=== PATIENT | female | born 1990 | race Caucasian/White ===

== ENCOUNTER 2021-01-16 12:04 | Emergency (ER) | payer BC, SELFPAY ==
[2021-01-16 12:17] VITALS: BP 102/49; PULSE 70; RESP 16; TEMP 36.4; O2SAT 100
--- NOTE | 2021-01-16 12:58 | ED.EYEPROB ---
HPI - Eye Problem General Chief complaint: Eye Problems Stated complaint: eye irritation Time Seen by Provider: 01/16/21 12:49 Source: patient and RN notes reviewed Mode of arrival: ambulatory Limitations: no limitations History of Present Illness HPI Narrative: Patient presents today complaining of irritation to her right eye as well as swelling to the right eyelid. She cleaned out her chicken coop a few days ago and the symptoms began later that day. She been cleaning the external portion of her eye with peroxide and applying Neosporin. She had been putting old leftover antibiotic drops in her eye without relief. States the symptoms are not worsening, but also not improving. Denies drainage, vision changes or difficulty seeing. Denies pain. Reports itching and irritation. MD chief complaint: eye redness Related Data Home Medications Medication Instructions Recorded Confirmed ergocalciferol (vitamin D2) 01/16/21 escitalopram oxalate mg 01/16/21 spironolactone 01/16/21 Allergies Allergy/AdvReac Type Severity Reaction Status Date / Time No Known Drug Allergies Allergy Unknown Unknown Verified 01/16/21 12:34 Review of Systems Review of Systems: Narrative: CONSTITUTIONAL: Denies body aches, fever, chills, or sweats. EYES: Denies visual changes,or discharge. + Right eye redness, irritation, and itching ENT: Denies rhinorrhea, congestion, sore throat, or otalgia. CARDIOVASCULAR: Denies chest pain, palpitations, or edema. RESPIRATORY: Denies cough or dyspnea. GASTROINTESTINAL: Denies abdominal pain, nausea, vomiting, or diarrhea. GENITOURINARY: Denies dysuria or hematuria. SKIN: Denies rash, itching, or wounds. MUSCULOSKELETAL: Denies back pain, joint pain, or myalgia. NEUROLOGIC: Denies headache, numbness, tingling, or weakness. PSYCH: Denies depression or anxiety. [facility] Past Medical History Medical History (Updated 01/16/21 @ 15:26 by Chani Mccormick, [facility], ) Anxiety Depression Family History Family History (Updated 12/27/15 @ 09:27 by DOCTOR UNKNOWN) Other Depression Diabetes mellitus Social History Social History Smoking status: Never smoker Alcohol intake: never Comments At time of signature, I have reviewed and agree with nursing past medical, surgical, social and family history unless otherwise noted. Please see nursing chart for further information. There is no relevant family history pertinent to the presenting complaint Exam Narrative: Exam Narrative: GENERAL: Well-appearing, well-nourished, and in no acute distress. HEAD: Normocephalic, atraumatic. EYES: EOMI. PERRL. Left eye normal. Right eye: Injected conjunctiva. No drainage. Upper and lower eyelids are slightly edematous without erythema, induration. Lashes normal. ENT: Mucous membranes pink and moist. NECK: Normal AROM. CHEST: No respiratory distress. EXTREMITIES: Normal range of motion. No edema. SKIN: Warm, dry, no rash. Capillary refill normal. Normal skin turgor. NEURO: No focal deficits. Alert and oriented x3. Gait steady. PSYCH: Normal affect. No signs of depression or anxiety. Course Vital Signs Vital signs: Vital Signs Temperature 97.6 F 01/16/21 12:17 Pulse Rate 70 01/16/21 12:17 Respiratory Rate 16 01/16/21 12:17 Blood Pressure 102/49 L 01/16/21 12:17 Pulse Oximetry 100 01/16/21 12:17 Temperature 97.6 F 01/16/21 12:17 Pulse Rate 70 01/16/21 12:17 Respiratory Rate 16 01/16/21 12:17 Blood Pressure 102/49 L 01/16/21 12:17 Pulse Oximetry 100 01/16/21 12:17 Reviewed MDM - Eye Problem Differential Diagnosis Differential diagnosis: Likely corneal abrasion, conjunctivitis, acute iritis, periorbital cellulitis and subconjunctival hemorrhage Critical Care Time Critical Care Time Critical Care Time: No Discharge Plan Discharge Clinical Impression: Conjunctivitis Qualifiers: Conjunctivitis type: acute Acute conjunctivitis type: unspecified Late
== END 2021-01-16 13:08 | disposition home or self-care (01) ==
PROVIDERS: Emergency Provider Nurse Practitioner
DX: H10.31 Unspecified acute conjunctivitis, right eye (principal); F41.9 Anxiety disorder, unspecified; F32.9 Major depressive disorder, single episode, unspecified
CPT/HCPCS: 99213; G0463

== ENCOUNTER → 2021-03-08 09:26 | Outpatient (CLI) | payer BC, SELFPAY ==
--- NOTE | ~2021-03-08 | US_ITS ---
US breast RT limited INDICATION: Palpable right breast mass for 3-4 weeks. No family history of breast cancer. No pain. TECHNIQUE: Dedicated Limited right breast ultrasound COMPARISON: No prior studies for comparison. FINDINGS: The right breast is composed of normal heterogeneous echotexture without focal solid or cys tic mass. IMPRESSION: 1: Normal limited right breast ultrasound. BI-RADS CATEGORY 1 - NEGATIVE Reviewed, dictated and finalized at location A.
== END ==
PROVIDERS: Visit Provider Obstetrics & Gynecology
DX: N63.10 Unspecified lump in the right breast, unspecified quadrant (principal)
CPT/HCPCS: 76642

== ENCOUNTER 2022-10-28 14:25 | Emergency (ER) | payer BC, SELFPAY ==
[2022-10-28 14:46] VITALS: BP 105/60; RESP 16; O2SAT 98
[2022-10-28 15:19] LABS: Strep Group A RT-PCR DETECTED (Negative)
[2022-10-28 15:35] LABS: Influenza A QL RT-PCR Negative (Negative); Influenza B QL RT-PCR Negative (Negative); SARS-CoV-2 RNA PCR Negative
--- NOTE | 2022-10-28 16:24 | ED.URI ---
HPI - URI/Sore Throat General Chief Complaint: Upper Respiratory Infection Stated Complaint: flu symptoms Time Seen by Provider: 10/28/22 15:55 Source: patient Mode of arrival: ambulatory Limitations: no limitations History of Present Illness HPI Narrative: Patient is a 32 y/o female who presents to the ED with c/o sore throat. Patient reports she developed sore throat, fever, body aches, bilateral ear ache yesterday morning. She is concerned for Strep throat. She has had Hx of this previously from her children being sick. She has been taking ibuprofen and tylenol without relief. Denies nausea, vomiting, abdominal pain, dysphagia, dyspnea, CP. Related Data Home Medications Medication Instructions Recorded Confirmed ergocalciferol (vitamin D2) 1,250 01/16/21 04/28/21 mcg (50,000 unit) capsule escitalopram oxalate 10 mg tablet mg 01/16/21 04/28/21 spironolactone 50 mg tablet 01/16/21 04/28/21 Allergies Allergy/AdvReac Type Severity Reaction Status Date / Time No Known Drug Allergies Allergy Unknown Unknown Verified 10/28/22 15:54 Review of Systems Review of Systems: CONSTITUTIONAL: Reports fever. ENT: Reports sore throat, bilateral otalgia. Denies dysphagia. CARDIOVASCULAR: Denies chest pain. RESPIRATORY: Denies dyspnea. GASTROINTESTINAL: Denies abdominal pain, nausea, vomiting, or diarrhea. MUSCULOSKELETAL: Reports myalgias. All systems reviewed & are unremarkable except as noted in HPI and below PMFSH Past Medical History Medical History Anxiety Depression Surgical History Surgical History History of nasal surgery [place] teeth extracted Family History Family History Other Depression Diabetes mellitus Social History Social History Smoking status: Never smoker Alcohol intake: never Exam Narrative: GENERAL: Mildly ill appearing, well-nourished, non-toxic, in no acute distress. HEAD: Normocephalic, atraumatic. EYES: PERRLA/EOMI, conjunctiva clear. ENT: Moderate posterior pharynx erythema, mild bilateral tonsillar hypertrophy, minimally worse on right. Uvula midline. Maintaining secretions. No tonsillar exudate. No significant erythema or bulging to bilateral TMs. NECK: Supple. No adenopathy, no masses. RESPIRATORY: Airway patent, respirations nonlabored. Clear to auscultation bilaterally, no rales, rhonchi, wheezing. CARDIOVASCULAR: Regular rate and rhythm without murmurs, rubs, or gallops. Radial pulses 2+ and equal bilaterally. MUSCULOSKELETAL: Moves all extremities. Strength/ROM intact without gross deformities. SKIN: Warm, dry, normal color. No rashes. NEURO: A&O X3. Speech clear. Cranial nerves II-XII grossly intact. Steady gait. No ataxic movements. PSYCHIATRIC: Appropriate mood and affect. Normal interaction. Course Vital Signs Vital signs: Vital Signs Respiratory Rate 16 10/28/22 14:46 Blood Pressure 105/60 10/28/22 14:46 Pulse Oximetry 98 10/28/22 14:46 Oxygen Delivery Room Air 10/28/22 14:46 Pulse Rate 74 10/28/22 16:30 Respiratory Rate 16 10/28/22 16:30 Blood Pressure 105/60 10/28/22 14:46 Pulse Oximetry 98 10/28/22 16:30 Oxygen Delivery Room Air 10/28/22 14:46 MDM - URI/Sore Throat MDM Narrative Medical decision making narrative: Patient presented to ED with sore throat, myalgias, Hx of strep throat which felt similar. Moderate posterior pharynx erythema on exam, some tonsillar hypertrophy. No significant asymmetry. Uvula midline. 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 Strep testing positive in the ED. Influenza and COVID-negative. Patient will be given amoxicillin. Given first dose of abx and dose of steroids in the ED. Discussed reasons to return. Patient agrees w/ plan. VSS at time of d/c. Medical Records Atte
[2022-10-28 16:30] VITALS: PULSE 74; RESP 16; O2SAT 98
[2022-10-28] MEDS: IBUPROFEN 600 MG TABLET PO (16:41)
[2022-10-28] MEDS: methylPREDNISolone SOD SUCC 125 MG VIAL IM (16:41)
[2022-10-28] MEDS: AMOXICILLIN 500 MG CAPSULE PO (16:41)
== END 2022-10-28 16:49 | disposition home or self-care (01) ==
LOC: ANHED 16:46
PROVIDERS: Emergency Medicine; Emergency Provider Physician Assistant; PCP Physician Assistant Medical
DX: J02.0 Streptococcal pharyngitis (principal); Z20.822 Contact with and (suspected) exposure to COVID-19; F41.9 Anxiety disorder, unspecified; F32.9 Major depressive disorder, single episode, unspecified
CPT/HCPCS: 87636; 87651; 96372; 99283; A9270; J2930

== ENCOUNTER 2023-12-25 14:59 | Outpatient (CLI) | payer OTHER, BC, SELFPAY ==
--- NOTE | 2023-12-25 15:10 | ECG_ITS ---
Measurements Intervals [place] Rate: 70 P: 71 KS: 133 QRS: -10 QRSD: 81 T: 29 QT: 399 QTc: 431 Interpretive Statements SINUS RHYTHM LOW QRS VOLTAGE IN PRECORDIAL LEADS [QRS DEFLECTION < 1.0 mV IN CHEST LEADS] POSSIBLE RIGHT VENTRICULAR CONDUCTION DELAY [RSR (QR) IN V1/V2] BORDERLINE ECG NO PREVIOUS ECG AVAILABLE FOR COMPARISON Electronically Signed On 12-25-2023 16:31:57 [employer]ICE ANALYST by Anant Barraza M.D.
[2023-12-25 16:11] LABS: Hematocrit 39.3 % (37.0-47.0); Hemoglobin 12.6 g/dL (12.0-15.0)
== END 2023-12-25 15:00 | disposition home or self-care (01) ==
PROVIDERS: Anesthesiology; PCP Physician Assistant Medical; Visit Provider Surgery Plastic and Reconstructive Surgery
DX: Z01.818 Encounter for other preprocedural examination (principal); R93.1 Abnormal findings on diagnostic imaging of heart and coronary circulation; Z41.1 Encounter for cosmetic surgery
CPT/HCPCS: 36415; 85014; 85018; 93005

== ENCOUNTER 2024-01-02 00:03 | Day surgery (SDC) | payer OTHER, BC, SELFPAY ==
[2023-12-23 15:17] VITALS: BMI 21.7
--- NOTE | 2023-12-23 15:20 | PC.NURSE ---
Report to the Outpatient Waiting Room, entrance under the green pavilion located off [facility], at time 6:00 on date 01/02/24. Planned Procedure Time: 7:30. Time changes happen often and if your time is changed the preop area will call you the afternoon before. - You and your visitor will be asked to self-screen and do not enter if you have any COVID symptoms. - A mask is optional within the hospital at this time. Patients may have clear liquids (water, carbonated beverages, clear teas, apple juice) until 3 hours prior to surgery (4:30) with a maximum of 20 ounces. - No food from midnight until time of surgery Take the following medications with a SIP of water the morning of surgery: LEXAPRO DO NOT STOP ANY OF YOUR OTHER PRESCRIPTION MEDICATIONS PRIOR TO SURGERY ?EXCEPT THE FOLLOWING Medications to discontinue per physician: VITAMINS/SUPPLEMENTS Date to take last dose: 12/29/23 Please no make-up, nail lithuanian, hairspray, perfume, deodorant, or body powder the day of surgery. No jewelry (including any body piercings) or valuables the day of surgery, leave them at home. Please take a shower or bath the night before, or the morning of, surgery with an antibacterial soap. Wear comfortable, loose fitting clothing. - Jewelry must be removed prior to entering the operating room. Rings and piercings that are not removed may be cut off. - The hospital will not accept responsibility for valuables. - Please leave all valuables, including medications, at home the day of surgery. If you are going home after surgery, a licensed equipment driver must drive you home. - NO public transportation without another adult if you receive anesthesia. - We recommend that an adult stay with you for 24 hours following discharge. - We also recommend that you do not drive, make important decision, drink alcoholic beverages, or take any drugs that were not prescribed by your health care provider for at least 24 hours after your discharge time. Follow any additional instructions given to you from your surgeon. If you or anyone in your household have experienced Covid symptoms in the past week, please notify your surgeon or the nurse liaison at the phone number below for possible testing. Telephone instructions given to PT - KAMLESH CHACON and asked if any additional questions and then verbalized understanding. Patient advised to call surgeon office or pre surgery nurse liaison [phone] if any additional questions.
[2024-01-02] VITALS (10 sets, daily range): BP systolic 94–118; BP diastolic 55–82; PULSE 58–99; RESP 12–16; TEMP 36.3–36.7; O2SAT 100
--- NOTE | 2024-01-02 06:24 | WPDANESEPPF ---
Anes - Initial Pre Proc Eval Procedure: Operation Date: 01/02/24 07:30 Proposed Procedures p Abdominoplasty with Liposuction - Mike Garcia MD s Open Umbilical Hernia Repair - Brandt Muñoz MD Date/Time: 01/02/24 06:24 Surgeon: Mike Garcia MD Pre Op Diagnosis: skin laxity, reduceable umbilical hernia Patient Data Age: 33 Gender: F Height: 1.68 m Weight: 61.25 kg Allergies Allergy/AdvReac Type Severity Reaction Status Date / Time No Known Drug Allergies Allergy Unknown Unknown Verified 12/23/23 15:16 Home Medications Medication Instructions Recorded Confirmed Type escitalopram oxalate 20 mg tablet 20 mg PO DAILY 07/15/23 12/23/23 History (Lexapro) ergocalciferol (vitamin D2) 1,250 1,250 mcg PO .3 times a month 08/09/23 12/23/23 History mcg (50,000 unit) capsule multivitamin 1 tablet PO DAILY 12/23/23 12/23/23 History Patient hx anesthesia problems: none Family hx anesthesia problems: none Results Review: All pre-operative results and documents have been reviewed as part of the pre-operative evaluation. [facility] Past Medical History Medical History Anxiety Depression Thyroid cyst Vitamin D deficiency Surgical History Surgical History History of nasal surgery [place] teeth extracted Family History Family History Other Depression Diabetes mellitus Social History Social History Smoking status: Never smoker Alcohol intake: never Substance use: never Substance use type: does not use Lack of Transportation: No Lack of Food: Never True Current Housing: I Have Housing Concerned About Future Housing: No Difficulty Paying Gas/Electric Bills: No Difficulty Paying for Meds: No Currently Unemployed: No Difficulty w/ Childcare or Family Care: No Living arrangements: with family Occupation/Education: occupation Gender identity (if verbalized by the patient): Female Spiritual care concerns: No Anes - Eval Final PreProcedure Day of Procedure 01/02/24 06:24 Patient weight: normal Heart: regular rate and rhythm Lungs: clear to auscultation Airway: Mallampati scale class II Neurological: alert and oriented Last oral intake: >/= 8 hours ASA classification: II Emergent: no Anesthetic plan: proceed Anesthesia type and monitoring: general ETT and standard monitoring Results Review: All pre-operative results and documents have been reviewed as part of the pre-operative evaluation. Informed Consent: The patient's anesthetic plan and its attendant risks and benefits were discussed with the patient/family/POA. Questions were solicited and answers provided to the satisfaction of the patient/family/POA.
[2024-01-02 06:49] LABS: Urine Cotinine NEGATIVE
--- NOTE | 2024-01-02 07:03 | WPDHPUPDATE1 ---
History and Physical Update Update Date/Time: 01/02/24 07:03 History and Physical has been reviewed, including an updated exam of the patient. There are NO changes in the patient's condition. Risks, benefits, and alternatives have been discussed and questions answered. Patient agrees to proceed with procedure.
--- NOTE | 2024-01-02 07:03 | W.PM.PROC2 ---
Procedure Note - Detailed Date of Procedure 01/02/24 Pre-op Diagnosis skin laxity, reduceable umbilical hernia Post-op Diagnosis Same Procedure Performed Abdominoplasty Surgeon Mike Garcia MD Anesthesia General Findings Tissue removed: 273 Diastasis repair 5 cm Float umbilicus Umbilical hernia repair (see Dr. Muñoz's note) Description of Procedure They are here today for the above procedures. Previously and again today the risks, benefits, alternatives were discussed in extensive detail. I wanted them to be very realistic about the risks involved as well as expectations. We discussed aftercare and what to monitor for. I was very upfront about the risks of wound breakdown leading to loss of skin, open wounds, and need for additional procedures with permanent abdominal deformity. We discussed DVT/PE risks and management. Made sure answered all of their questions to their satisfaction today and consent was obtained. They were marked in the preoperative holding area with their verification. The patient was taken to the operating room. Anesthesia was provided by anesthesiology. A thorough abdominal examination was completed. Stab incisions were made and tumescent solution was infiltrated. A 10 blade was used to make the upper incision. I continued dissection down to the level of fascia. Elevated just what was necessary for repair of the diastasis with release of the umbilicus I then flexed the bed to verify the upper skin flap would reach the lower markings without tension. Once verified I placed her supine once again and a 10 blade used to make the lower incision. The intervening tissue was removed. Hernia repair was completed. See Dr. Muñoz's note for details. A 2 mm blunt cannula with 0.5% bupivacaine was injected deep to the fascia bilaterally. I plicated the diastasis recti using 0 PDO Stratafix barbed suture. This was in 2 separate layers using 2 separate sutures as well. The patient was flexed and starting from superior to inferior began plication using 2-0 Vicryl to obliterate all space in a standard progressive tension fashion. At the umbilicus I secured this to the fascia with 2-0 Vicryl. I continued the remainder of the plication using 2-0 Vicryl until I reached my lower planned scar line. I trimmed any excess skin of the upper flap making sure this was a tension-free closure. 15 Slava drain was placed. I then approximated using a 3 point suture with 2-0 Vicryl followed by 2-0 PDO Stratafix, 3-0 Stratafix ,running subcuticular 4-0 Monocryl, and tissue glue. Fluffs and an abdominal binder were placed. The patient was transferred to the bed in a flexed position. [place] and taken to the PACU without difficulty. All instrument and sponge counts were correct at the end of the case. Estimated Blood Loss 40 Drains Yes (15 Slava) Packing No Pathology None sent Complications No immediate complications Condition Stable Disposition PACU
[2024-01-02] MEDS: ACETAMINOPHEN 500 MG TABLET 1000 MG PO (07:04)
[2024-01-02] MEDS: KETOROLAC 15 MG/ML VIAL (*BKC) IV PUSH (07:04)
[2024-01-02] MEDS: SCOPOLAMINE 1 MG PATCH 1 PATCH TRANSDERM (07:05)
--- NOTE | 2024-01-02 07:18 | WPDHPUPDATE1 ---
History and Physical Update Update Date/Time: 01/02/24 07:18 History and Physical has been reviewed, including an updated exam of the patient. There are NO changes in the patient's condition. Risks, benefits, and alternatives have been discussed and questions answered. Patient agrees to proceed with procedure.
[2024-01-02] MEDS: ceFAZolin 2 GM/D5W 50 ML 2 GM/50 ML BAG IVPB (07:28)
[2024-01-02] MEDS: TRANEXAMIC ACID 1,000MG/ISO100 1,000 MG/100 ML BAG 200 MG IVPB (07:28)
[2024-01-02] MEDS: LACTATED RINGERS 1,000 ML 30 ML IV CONT ×2 (07:30→09:52)
[2024-01-02] MEDS: LACTATED RINGERS IRRIG 1,000 ML, LIDOCAINE HCL 1% LOCAL INJ 50 ML, EPINEPHrine HCL INJ ... INFILTRATE (07:58)
[2024-01-02] MEDS: BUPIVACAINE/EPINEPHRINE 0.5% 30 ML VIAL 60 ML INFILTRATE (08:23)
--- NOTE | 2024-01-02 08:40 | W.PM.PROC2 ---
Procedure Note - Detailed Date of Procedure 01/02/24 Pre-op Diagnosis skin laxity, reduceable umbilical hernia Post-op Diagnosis Same Procedure Performed Open umbilical hernia repair without mesh Surgeon Brandt Muñoz MD Anesthesia General Indications Patient is a 33-year-old female who is currently undergoing a mini abdominoplasty by Dr. Mobley. She also has a small umbilical hernia which is now going to repair primarily without the use of any mesh. Findings Primary umbilical defect measuring 1cm in diameter. Description of Procedure After informed consent was obtained patient was taken to the operating room she was placed under general endotracheal anesthesia. Dr. Mobley then proceeded to perform the initial portions of his many abdominal plasty by exposing the hernia defect and raising subcutaneous flaps. I then entered the operating room another time-out was then performed. The defect has omentum underneath which is easily reducible. The defect measured 1cm in diameter. I then proceeded to close the defect with 5 separate 0 Ethibond sutures getting about 1cm bite on either side of the fascia. The defect closed easily without any tension. At this point I then turned the procedure back over to Dr. Mobley. Patient was left in the operating room under general endotracheal anesthesia in stable condition at the end of my portion of the procedure. Blood loss for the hernia repair was less than 1cc. Implants None Estimated Blood Loss 1 Drains No Packing No Pathology None sent Complications No immediate complications Condition Stable Disposition PACU [facility] Billing Surgery - Charge Forward: Surgery Billing
[2024-01-02] MEDS: oxyCODONE HCL (*CRX) 5 MG TAB IR PO (11:10)
== END 2024-01-02 11:58 | disposition home or self-care (01) ==
PROVIDERS: Surgery; PCP Physician Assistant Medical; Visit Provider Surgery Plastic and Reconstructive Surgery
PROC: (CPT 15830; principal; 2024-01-02 07:30)
PROC: (CPT 49591; 2024-01-02 07:30)
DX: K42.9 Umbilical hernia without obstruction or gangrene (principal); L57.4 Cutis laxa senilis; E55.9 Vitamin D deficiency, unspecified; F41.9 Anxiety disorder, unspecified; F32.A Depression, unspecified; Z79.899 Other long term (current) drug therapy
CPT/HCPCS: 49591; 15830; 15847; 80307; A9270; J0171; J0690; J1100; J1170; J1885; J2250; J2405; J2704; J3010; J7120

== ENCOUNTER 2025-10-24 09:43 | Emergency (ER) | payer OTHER, SELFPAY ==
--- NOTE | 2025-10-24 09:52 | ED_ITS ---
HPI - Skin/Abscess/Foreign Bdy General Chief complaint: Skin/Abscess/Foreign Body Stated complaint: Hives Time Seen by Provider: 10/24/25 09:44 Source: patient Mode of arrival: ambulatory Limitations: no limitations History of Present Illness HPI narrative: Patient is a 35-year-old female that presents with hives. Patient was seen by PCP 10/14 and received IM steroid injections but is still having a rash. Kalie vasquez had similar episode 06/15. Reports rash is itchy but not painful Related Data Home Medications ?Medication ?Instructions ?Recorded ?Confirmed ?Last Taken ?Type ergocalciferol (vitamin D2) 1,250 1,250 mcg PO .3 time s a month 08/09/23 10/14/25 3 Days Ago History mcg (50,000 unit) capsule ~12/30/23 multivitamin 1 tablet PO DAILY 12/23/23 1 12/15/24 3 Days Ago History ~12/30/23 Allergies Allergy/AdvReac Type Severity Reaction Status Date / Time No Known Drug Allergies Allergy Unknown Unknown Verified 06/15/25 15:13 Review of Systems Review of Systems: All systems reviewed & are unremarkable except as noted in HPI and below Constitutional: Constitutional: Denies body ache(s), Denies chills, Denies fatigue, Denies fever(s), Denies headache(s), Denies malaise and Denies weakness Eyes: Eyes: Denies blurry vision, Denies irritation and Denies loss of vision ENT: Denies otalgia, Denies headache(s), Denies nasal discharge, Denies sinus pain and Denies sore throat Cardiovascular: Cardiovascular: Denies chest pain, Denies irregular heart rhythm and Denies dyspnea Respiratory: Respiratory: Denies dyspnea Gastrointestinal: Gastrointestinal: Denies abdominal pain, Denies melena, Denies hematochezia, Denies diarrhea, Denies nausea and Denies vomiting Musculoskeletal: Musculoskeletal: Denies back pain, Denies myalgias and Denies arthralgias Integumentary/Breasts: Skin/Breast: Reports pruritus and Reports rash Neurologic: Denies headache(s), Denies loss of vision and Denies weakness Psychiatric: Psychiatric: Reports no additional psychiatric complaints Endocrine: Endocrine: Denies fatigue PMFSH Past Medical History Medical History Thyroid cyst Vitamin D deficiency Depression Anxiety Surgical History Surgical History [place] teeth extracted History of nasal surgery Family History Family History Other Depression Diabetes mellitus Social History Social History Smoking status: Never smoker Alcohol intake: never Substance use: never Substance use type: does not use Lack of Transportation: No Lack of Food: Never True Current Housing: I Have Housing Concerned About Future Housing: No Difficulty Paying Gas/Electric Bills: No Difficulty Paying for Meds: No Currently Unemployed: No Difficulty w/ Childcare or Family Care: No Living arrangements: with family Occupation/Education: occupation Gender identity (if verbalized by the patient): Female Spiritual care concerns: No Comments At time of signature, agree with nursing past medical, surgical, social and family history. There is no relevant family history pertinent to the presenting complaint. Exam Const: General: cooperative, healthy appearing, comfortable, no acute distress and well nourished Nutritional Appearance: well nourished Orientation/consciousness: patient oriented x3 Limitations: no limitations HENMT: Head: normal to inspection, normocephalic and atraumatic Ears: hearing grossly normal bilaterally and external ears normal Face/Nose/Sinus: Normal external nose present, normal facial exam and face symmetric Face and sinus: normal facial exam and face symmetric Mouth: Yes lip normal Eyes: General: appearance normal, both eyes and all related structures Alignment and Position: alignment normal and position normal Periorbital: periorbital findings normal Eyelids: eyelids normal Pupils: Equal, round and reactive pupils present EOM: EOMs intact bilaterally Neck: Neck: normal visual inspection, full ROM and supple Chest: Chest palpation & inspection: normal inspection of the chest Resp: Effort & Inspection: normal respiratory effort and able to speak in complete sentences Auscultation: clear to auscultation bilaterally Cardio: Rate: regular rate Rhythm: regular rhythm Heart sounds: S1 normal heart sound present and S2 normal heart sound present GI: Inspection: normal to inspection Skin: General skin exam: normal color Rashes: rashes noted urticaria bilateral hand Neuro: General: patient oriented x3 and moves all extremities Cranial nerves: Yes Equal, round and reactive pupils present Speech: normal speech Gait exam (Neuro): Normal gait present Extrem: General: normal to inspection, full ROM and no edema Psych: Appearance: grossly normal and well kempt Mental Status: mental status grossly normal Speech and movement: Normal speech and movement present Affect: normal affect Attitude: cooperative Thought process: Normal thought process present Course Course Emergency Course: Patient is aware of diagnosis, understands and agrees to treatment plan. Anticipatory guidance given. Patient agrees to follow-up as directed and is aware of reasons to seek care at the emergency department. Portions of this record may have been created with voice recognition software Level of Care: Express Care Visit Vital Signs Vital signs: Vital Signs Temperature 37.1 C 10/24/25 09:56 Pulse Rate 76 10/24/25 09:56 Respiratory Rate 16 10/24/25 09:56 Blood Pressure 115/66 10/24/25 09:56 Pulse Oximetry 99 10/24/25 09:56 Temperature 37.1 C 10/24/25 09:56 Pulse Rate 76 10/24/25 09:56 Respiratory Rate 16 10/24/25 09:56 Blood Pressure 115/66 10/24/25 09:56 Pulse Oximetry 99 10/24/25 09:56 [facility] MDM Narrative Medical decision making narrative: will treat with oral steroids for longer duration. Recommend following up with [facility] buncher through PCP if symptoms are not improving Pt well hydrated appearing, in no respiratory distress, hemodynamically stable. Recommend supportive care. The patient is stable at time of discharge the clinical impression was discussed and the patient was given the opportunity to ask questions, which were addressed as completely as possible given the information available at present. Anticipatory guidance and return to care precautions were discussed and the importance of primary care follow-up was stressed and encouraged. The patient voiced understanding of the plan, indications to return, and the need for follow-up. Exam findings show no acute concerns or changes Patient is appropriate for outpatient treatment and follow-up. Differential Diagnosis Differential Diagnosis: Differential diagnostic considerations for skin/abscess/foreign body issues include abscess of skin or subcutaneous tissue, viral exanthem, dermatophytosis, urticaria, herpes zoster, allergic reaction to drug, cellulitis, eczema, insect bites, impetigo, contact dermatitis, vasculitis. Medical Records I have reviewed the following patient records and this information was taken into consideration when formulating the assessment and plan.: previous clinic visits Discharge Plan Discharge Clinical Impression: Urticaria Patient Disposition: Home Condition: Stable Instructions: Urticaria (ED) Additional Instructions: Take steroid in the morning with food. Take famotidine daily. Take Claritin, Zyrtec or Doris in the morning along with Benadryl at night. Wash the skin thoroughly with soap and cool water as soon as possible. Scrub under the fingernails with a brush to prevent spreading to other parts of the body by touching or scratching. For some people, adding oatmeal to a bath, applying cool wet compresses, and applying calamine lotion may help to relieve itching IF symptoms get worse to follow up with your primary care provider or seek ER visit if you developing difficulty breathing, weakness, dizziness Patient Language: Turkmen Prescriptions: New prednisone 10 mg tablet See Rx Instructions .ROUTE .COMPLEX Qty: 21 0RF Rx Instructions: 40 mg daily for 3 days, 20 mg daily for 3 days, 10 mg daily for 3 days famotidine 20 mg tablet 20 mg PO DAILY 14 Days Qty: 14 0RF No Action ergocalciferol (vitamin D2) 1,250 mcg (50,000 unit) capsule 1,250 mcg PO .3 times a month multivitamin Tablet 1 tablet PO DAILY Follow-up/Referrals: Jd De La Fuente MD [Physician, Family Practice] - 3 Days Time of Disposition: 10:29
[2025-10-24 09:56] VITALS: BP 115/66; PULSE 76; RESP 16; TEMP 37.1; O2SAT 99
== END 2025-10-24 10:35 | disposition home or self-care (01) ==
PROVIDERS: Emergency Provider Nurse Practitioner Family
DX: L50.9 Urticaria, unspecified (principal); E55.9 Vitamin D deficiency, unspecified
CPT/HCPCS: 99213; G0463